=== PATIENT | male | born 1985 | race Caucasian/White ===

== ENCOUNTER 2017-09-16 08:22 | Outpatient (CLI) | payer BC ==
[2017-09-16] MEDS ORDERED: Gadobenate Dimeglumine 529 MG/1 ML (20ML VIAL) ONE (13:42)
== END 2017-09-16 08:23 | disposition home or self-care (01) ==
LOC: BICMRI 08:22
PROVIDERS: ATTEND Internal Medicine Gastroenterology
DX: K86.9 Disease of pancreas, unspecified (principal)
CPT/HCPCS: 74183; A9579

== ENCOUNTER 2019-01-17 09:48 | Outpatient (CLI) | payer BC ==
--- NOTE | 2019-01-17 10:12 | RAD ---
EXAM: XR Thoracic Spine 3 V STANDARD PROVIDED CLINICAL HISTORY: Back pain COMPARISON: None FINDINGS: Thoracic alignment appears normal. Vertebral body heights appear preserved. Pedicles appear intact. I ntervertebral disc space heights appear preserved. IMPRESSION: Unremarkable thoracic spine radiographs.
== END 2019-01-17 09:49 | disposition home or self-care (01) ==
LOC: SCSRAD 09:48
PROVIDERS: ATTEND Family Medicine
DX: S29.012A Strain of muscle and tendon of back wall of thorax, initial encounter (principal)
CPT/HCPCS: 72072